=== PATIENT | female | born 1980 | race Caucasian/White ===

== ENCOUNTER 2019-11-26 13:02 | Outpatient (CLI) | payer OTHER | END 2019-11-26 13:12 | disposition home or self-care (01) | LOC: SONOGRAMA 13:02 → MAMO-SONO 13:15 | DX: M25.511 Pain in right shoulder (principal) ==

== ENCOUNTER 2020-01-08 09:40 | Outpatient (CLI) | payer OTHER | END 2020-01-08 09:43 | disposition home or self-care (01) | LOC: MRI 09:40 | PROVIDERS: ATTEND General Practice | DX: M25.511 Pain in right shoulder (principal); Z87.81 Personal history of (healed) traumatic fracture | CPT/HCPCS: 73221 ==

== ENCOUNTER 2020-01-29 10:29 | Outpatient (CLI) | payer OTHER | END 2020-01-29 10:33 | disposition home or self-care (01) | LOC: RAD 10:29 | DX: M79.671 Pain in right foot (principal) ==